=== PATIENT | female | born 1945 | race Caucasian/White ===

== ENCOUNTER 2020-08-07 04:11 | Emergency (ER) | payer MEDICARE, BC ==
[~2020-08-07] VITALS: Ht 162.6 cm; Wt 87.0 kg
--- NOTE | 2020-08-07 04:21 | PHYS DOC ---
Past History Past Medical History: Anxiety, Arthritis, CAD, Cancer, Hypertension, Other Past Surgical History mastectomy General Adult HPI: HPI: ".. I was at... [facility]...Friday... I gotten.. a nose bleed .. that would not stop... they put a balloon... and packing .. in.. I think it has moved.. I can't swallow.. I got problems breathing..I am choking.. " Patient is a 75 year old female who presents with above hx and complaints of epistaxis Sat. Aug 05. Pt apparently had placement of balloon /gauze packing in Lt nares. Packing has now slipped down into her throat. Balloon decompressed and removed the packing. No current active bleeding. Pt. has been taking her Aspirin and Eliqus 5 twice a day. Pt. currently hypertensive. Has formation of clot over left nares Kiesselbach area, no septal hematoma.. Pt. currently not on any antibiotics. Pt. follows with Dr. Bingham, and Dr. Roche. Patient denies any change in baseline medications. Has history of HTN, CADz, Afib, Hypothyroid, osteoporosis, arthritis, breast cancer invasive ductal- surgery and radiation seeds. Review of Systems: Review of Systems: Constitutional: Denies fever or chills Eyes: Denies change in visual acuity HENT: Hx of nasal congestion , sore throat and epistaxis that did not stop bleeding on 01/04 Respiratory: Complaints difficulty breathing because of packing in her throat Cardiovascular: Denies chest pain or edema GI: Denies abdominal pain, nausea, vomiting, bloody stools or diarrhea : Denies dysuria Musculoskeletal: History of chronic arthritis Integument: Denies rash Neurologic: Denies headache, focal weakness or sensory changes Endocrine: Denies polyuria or polydipsia Lymphatic: Denies swollen glands Psychiatric: Pt. anxious Heart Score: Risk Factors: Risk Factors: DM, Current or recent (<one month) smoker, HTN, HLP, family history of CAD, obesity. Risk Scores: Score 0 - 3: 2.5% MACE over next 6 weeks - Discharge Home Score 4 - 6: 20.3% MACE over next 6 weeks - Admit for Clinical Observation Score 7 - 10: 72.7% MACE over next 6 weeks - Early Invasive Strategies Family History: Family History: Noncontributory to presentation Current Medications: Current Meds: See drug list and nursing history Allergies: Allergies: Allergies to Xarelto Cefpodoxime erythromycin Vantin Physical Exam: PE: Constitutional: in acute distress, non-toxic appearance. [] HENT: Normocephalic, atraumatic, bilateral external ears normal, oropharynx moist, no oral exudates, nose normal. Packing had slipped down from posterior nose into upper esophagus and pharyngeal area. After removal of packing patient has stable eschar or clot over Kiesselbach area left naris no active bleeding.. Patient observed approximate 1 hour with no reoccurrence of bleeding will not repack nose. Eyes: PERRLA, EOMI, conjunctiva normal, no discharge. [] Neck: Normal range of motion, no tenderness, supple, no stridor. [] Cardiovascular:Irreglar Heart rate, irregular rhythm, no murmur, PMI to the left Lungs & Thorax: Bilateral breath sounds equal apex on auscultation [] mastectomy biopsy scars Abdomen: Bowel sounds normal, soft, no tenderness, no masses, no pulsatile masses. [] Skin: Warm, dry, no erythema, no rash. Poor turgor. No petechiae. No excessive bruising. Back: No tenderness, no CVA tenderness. [] Extremities: No tenderness, no cyanosis, no clubbing, ROM intact, no edema. Arthritic changes Neurologic: Alert and oriented X 3, normal motor function, normal sensory function, no focal deficits noted. [] Psychologic: Affect anxious, judgement normal, mood normal. [] EKG: EKG: [] Radiology/Procedures: Radiology/Procedures: [] Course & Med Decision Making: Course & Med Decision Making Pertinent Labs and Imaging studies reviewed. (See chart for details) Recommend patient hold her aspirin for 3 days. Recommend patient hold her Eliquis for 3 doses. ( this morning, tonight, and tomorrow morning). 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 . May start Eliquis tomorrow night if no active rebleeding. Patient to not blow nose. Patient may sniff. Patient to use small amount of Polysporin antibiotic to both naris 4 times a day. We will start the patient on a short course of amoxicillin for 7 days. P atient to follow-up with Dr. Roche. Patient return if any concerns. Patient may use 2 sprays of Afrin at night. Or if acute onset of rebleeding. Impression: 1. Hx of epistaxis-requiring nasal packing to stop bleeding 08/06/2020 - Seen at [facility]. 2. Nasal packing that became Malposition -packing removed ( No return if epistaxis while in the emergency room) [] Dragon Disclaimer: Dragon Disclaimer: This electronic medical record was generated, in whole or in part, using a voice recognition dictation system. Departure Departure: Disposition: HOME/RESIDENCE PRIOR TO ADM Condition: STABLE Scripts Oxymetazoline Hcl (AFRIN) 15 Ml Mist 15 ML NS two sprays at night, for epistaxis, #30 SPRAY Prov: CHRISTIAN SHEPARD MD 08/07/20 Amoxicillin (AMOXICILLIN) 250 Mg Capsule 250 MG PO QID for epistaxis for 7 Days, #28 CAP Prov: CHRISTIAN SHEPARD MD 08/07/20 Dragon Disclaimer This chart was dictated in whole or in part using Voice Recognition software in a busy, high-work load, and often noisy Emergency Department environment. It may contain unintended and wholly unrecognized errors or omissions. CHRISTIAN SHEPARD MD Aug 07, 2020 04:21
[2020-08-07] MEDS ORDERED: BENZOCAINE ONE 20% MUCOSAL SPRAY. (04:34)
[2020-08-07] MEDS ORDERED: OXYMETAZOLINE 0.05% NASAL SPRAY 30ML BOTTLE. NS ONE (04:35)
[2020-08-07] MEDS ORDERED: BACITRACIN ZINC TOPICAL OINT PACKET. TP ONE (04:35)
[2020-08-07] MEDS ORDERED: AMOXICILLIN 250 MG CAPSULE PO ONE (05:00)
[2020-08-07] MEDS ORDERED: cloNIDine HCL 0.1 MG TABLET PO ONE (05:00)
[2020-08-07] MEDS ORDERED: cloNIDine TTS-2 1 PATCH PATCH TD ONE (05:00)
[2020-08-07] MEDS ORDERED: OXYM15MI4 NS (05:34)
[2020-08-07] MEDS ORDERED: AMOX-260 PO (05:34)
[2020-08-07 05:45] VITALS: BP 137/65
== END 2020-08-07 05:45 | disposition home or self-care (01) ==
LOC: ER 04:11
DX: R04.0 Epistaxis (principal); I10 Essential (primary) hypertension; F41.9 Anxiety disorder, unspecified; M19.90 Unspecified osteoarthritis, unspecified site; I25.10 Atherosclerotic heart disease of native coronary artery without angina pectoris
CPT/HCPCS: 99283